=== PATIENT | male | born 1985 | race Two or more races ===

== ENCOUNTER 2018-04-30 14:32 | Emergency (ER) | payer SELFPAY ==
[~2018-04-30] VITALS: Ht 180.3 cm; Wt 87.5 kg
[2018-04-30 14:38] VITALS: BP 121/77
== END 2018-04-30 16:07 | disposition home or self-care (01) ==
LOC: ED 16:01
DX: J15.9 Unspecified bacterial pneumonia (principal); J04.0 Acute laryngitis; B34.9 Viral infection, unspecified; H10.022 Other mucopurulent conjunctivitis, left eye; L01.01 Non-bullous impetigo; F17.200 Nicotine dependence, unspecified, uncomplicated; Z91.013 Allergy to seafood
CPT/HCPCS: 71046; 99283